=== PATIENT | female | born 1990 | race Caucasian/White ===

== ENCOUNTER 2020-10-12 15:22 | Emergency (ER) | payer BC ==
[~2020-10-12] VITALS: Ht 157.5 cm; Wt 99.8 kg
== END 2020-10-12 17:09 | disposition home or self-care (01) ==
LOC: EDSEX 15:22 → ER 15:45
DX: J02.9 Acute pharyngitis, unspecified (principal); E03.9 Hypothyroidism, unspecified; G47.30 Sleep apnea, unspecified
CPT/HCPCS: 99282